=== PATIENT | male | born 1980 ===

== ENCOUNTER 2021-07-12 06:02 | Inpatient (IN) | payer SELFPAY ==
[~2021-07-12] VITALS: Ht 180.3 cm; Wt 141.2 kg
[2021-07-12 07:35] LABS: Basophils # (auto) 0.1 10 ^3/uL (0-0.2); Basophils % (auto) 0.6 % (0.0-2.0); Eosinophils # (auto) 0.6 10 ^3/uL (0-0.8); Eosinophils % (auto) 6.3 % (0.0-7.0); Hemoglobin 14.6 g/dL (13.5-17.5); Lymphocytes # (auto) 1.8 10 ^3/uL (0.4-5.4); Lymphocytes % (auto) 21.1 % (10.0-50.0); Mean Corpuscular Hemoglobin 28.7 pg (28.0-32.0); Mean Corpuscular Hgb Conc. 33.1 g/dL (32.0-36.0); Mean Corpuscular Volume 86.8 fL (80.0-100.0); Monocytes # (auto) 0.9 10 ^3/uL (0-1.3); Monocytes % (auto) 10.1 % (0.0-12.0); Neutrophils # (auto) 5.4 10 ^3/uL (1.6-8.6); Neutrophils % (auto) 61.9 % (37.0-80.0); Nucleated Red Blood Cells % 0.2 %; Red Blood Cells 5.07 10^6/uL (4.5-5.90); Red Cell Distribution Width 14.9 % (11.8-14.3); White Blood Cell 8.7 10^3/uL (4.4-10.8)
[2021-07-12 07:57] LABS: Albumin 3.1 g/dL (3.4-5.0); Calcium 9.1 mg/dL (8.5-10.1); Potassium 3.9 mmol/L (3.5-5.1)
[2021-07-12 08:02] LABS: BUN/Creatinine Ratio 14.1; Bilirubin, Total 0.5 mg/dL (0.2-1.0); Total Protein 6.9 g/dL (6.4-8.2)
[2021-07-12] MEDS ORDERED: AZITHROMYCIN 500MG/ 250ML 250 ML IV ONE (09:00)
[2021-07-12] MEDS ORDERED: cefTRIAXone 1GM/50ML D5W 50 ML IV ONE (09:00)
[2021-07-12] MEDS ORDERED: MORPHINE SULFATE 4 MG/ML SYR/VIAL IV PRN (09:30)
[2021-07-12] MEDS ORDERED: HYDROcodone-ACET 5/325MG TAB PO PRN (09:30)
[2021-07-12] MEDS ORDERED: ACETAMINOPHEN 325 MG TAB PO PRN (09:30)
[2021-07-12] MEDS ORDERED: ONDANSETRON HCL 4 MG/2 ML VIAL IV PRN (09:30)
[2021-07-12] MEDS ORDERED: DOCUSATE SOD 100 MG CAP PO PRN (09:30)
[2021-07-12] MEDS: FAMOTIDINE (10MG/ML) 2ML VL IV SCH (10:00)
[2021-07-12] MEDS: DexAMETHasone SOD PHOS 10MG/1ML VIAL INJ IV SCH (10:38)
[2021-07-12] MEDS: ENOXAPARIN SOD 40 MG/0.4 ML SYRINGE SC SCH (10:39)
[2021-07-12] MEDS: ASCORBIC ACID 500 MG TAB PO SCH ×2 (10:39→21:17)
[2021-07-12] MEDS: MULTIPLE VITAMIN TAB PO SCH (10:39)
[2021-07-12] MEDS: ZINC SULFATE 220mg CAP or TAB PO SCH (10:39)
[2021-07-12] MEDS ORDERED: MORPHINE SULFATE INJECTION 2 MG/ML SYRG IV PRN (10:45)
[2021-07-12] MEDS ORDERED: NITROGLYCERIN 0.4 MG SL TAB SL PRN (10:45)
[2021-07-12 13:00] VITALS: BP 138/98
[2021-07-12] MEDS ORDERED: FUROSEMIDE 40 MG/4 ML VIAL IV ONE (13:15)
[2021-07-12] MEDS ORDERED: CARVEDILOL 12.5 MG TAB PO ONE (13:30)
[2021-07-12] MEDS ORDERED: CARVEDILOL 3.125 MG TAB PO ONE (13:45)
[2021-07-12] MEDS: SODIUM CHLOR 0.9% PF (SALINE LOCK) 10ML VIAL/SYR IV SCH ×2 (15:29→21:17)
[2021-07-12 15:36] LABS: Urine Bacteria NONE SEEN /hpf (None Seen); Urine Blood Negative /uL (Negative); Urine Specific Gravity 1.018 (1.001-1.035); Urine WBC 1 /hpf (0 - 3)
[2021-07-12 17:00] VITALS: BP 141/96
[2021-07-12] MEDS: CARVEDILOL 3.125 MG TAB PO SCH (21:19)
[2021-07-12 22:00] VITALS: BP 111/71
[2021-07-12] MEDS ORDERED: CARVEDILOL 12.5 MG TAB PO SCH (22:00)
[2021-07-13 05:00] VITALS: BP 125/86
[2021-07-13] MEDS: SODIUM CHLOR 0.9% PF (SALINE LOCK) 10ML VIAL/SYR IV SCH ×3 (06:20→21:27)
[2021-07-13 06:41] LABS: Basophils # (auto) 0 10 ^3/uL (0-0.2); Basophils % (auto) 0.3 % (0.0-2.0); Eosinophils # (auto) 0 10 ^3/uL (0-0.8); Eosinophils % (auto) 0.4 % (0.0-7.0); Hematocrit 39.6 % (41.0-53.0); Hemoglobin 13.6 g/dL (13.5-17.5); Lymphocytes # (auto) 1.9 10 ^3/uL (0.4-5.4); Mean Corpuscular Hemoglobin 29.4 pg (28.0-32.0); Mean Corpuscular Hgb Conc. 34.4 g/dL (32.0-36.0); Mean Corpuscular Volume 85.5 fL (80.0-100.0); Monocytes # (auto) 0.9 10 ^3/uL (0-1.3); Monocytes % (auto) 7.4 % (0.0-12.0); Neutrophils # (auto) 9.6 10 ^3/uL (1.6-8.6); Neutrophils % (auto) 76.9 % (37.0-80.0); Red Blood Cells 4.64 10^6/uL (4.5-5.90); Red Cell Distribution Width 14.8 % (11.8-14.3); White Blood Cell 12.5 10^3/uL (4.4-10.8)
[2021-07-13 07:02] LABS: Potassium 3.5 mmol/L (3.5-5.1)
[2021-07-13 07:10] LABS: Albumin 2.9 g/dL (3.4-5.0); BUN/Creatinine Ratio 23.8; Calcium 8.6 mg/dL (8.5-10.1); Total Protein 6.5 g/dL (6.4-8.2)
[2021-07-13 07:12] LABS: Bilirubin, Total 0.6 mg/dL (0.2-1.0)
[2021-07-13 08:00] VITALS: BP 124/83
[2021-07-13] MEDS: cefTRIAXone 1GM/50ML D5W 50 ML IV SCH (09:01)
[2021-07-13] MEDS: DexAMETHasone SOD PHOS 10MG/1ML VIAL INJ IV SCH (09:02)
[2021-07-13] MEDS: FAMOTIDINE (10MG/ML) 2ML VL IV SCH (09:04)
[2021-07-13] MEDS: CARVEDILOL 3.125 MG TAB PO SCH ×2 (09:06→21:27)
[2021-07-13] MEDS: MULTIPLE VITAMIN TAB PO SCH (09:07)
[2021-07-13] MEDS: ASCORBIC ACID 500 MG TAB PO SCH (09:08)
[2021-07-13] MEDS: ZINC SULFATE 220mg CAP or TAB PO SCH (09:09)
[2021-07-13] MEDS: ENOXAPARIN SOD 40 MG/0.4 ML SYRINGE SC SCH (09:11)
[2021-07-13] MEDS: AZITHROMYCIN 500MG/ 250ML 250 ML IV SCH (09:36)
[2021-07-13] MEDS ORDERED: amLODIPine BESYLATE 5 MG TAB PO SCH (10:00)
[2021-07-13] MEDS ORDERED: FUROSEMIDE 40 MG/4 ML VIAL IV SCH (10:00)
[2021-07-13 12:00] VITALS: BP 106/64
[2021-07-13] MEDS ORDERED: POTASSIUM CHL 20 Meq TABLET PO ONE (14:30)
[2021-07-13] MEDS ORDERED: MORPHINE SULFATE INJECTION 2 MG/ML SYRG IV PRN (14:45)
[2021-07-13 16:00] VITALS: BP 129/83
[2021-07-13 16:35] LABS: Amphetamine Screen, Urine NEGATIVE (NEGATIVE); Barbiturate Scree,Urine NEGATIVE (NEGATIVE); Benzodiazephine Screen, Urine NEGATIVE (NEGATIVE); Cannabinoid Screen, Urine NEGATIVE (NEGATIVE); Cocaine Screen, Urine NEGATIVE (NEGATIVE); Opiate Scree,Urine NEGATIVE (NEGATIVE); Phencyclidine Screen, Urine NEGATIVE (NEGATIVE)
[2021-07-13] MEDS: FUROSEMIDE 40 MG/4 ML VIAL IV SCH (17:33)
[2021-07-13] MEDS: SACUBITRIL-VALSARTAN 24mg/26mg TAB PO SCH (21:28)
[2021-07-13 22:38] VITALS: BP 138/87
[2021-07-14 05:09] VITALS: BP 125/81
[2021-07-14] MEDS: SODIUM CHLOR 0.9% PF (SALINE LOCK) 10ML VIAL/SYR IV SCH ×2 (06:23→14:35)
[2021-07-14] MEDS: FUROSEMIDE 40 MG/4 ML VIAL IV SCH (06:24)
[2021-07-14 08:00] VITALS: BP 114/68
[2021-07-14] MEDS: AZITHROMYCIN 500MG/ 250ML 250 ML IV SCH (09:10)
[2021-07-14] MEDS: cefTRIAXone 1GM/50ML D5W 50 ML IV SCH (09:10)
[2021-07-14] MEDS: FAMOTIDINE (10MG/ML) 2ML VL IV SCH (09:10)
[2021-07-14] MEDS: ENOXAPARIN SOD 40 MG/0.4 ML SYRINGE SC SCH (09:11)
[2021-07-14] MEDS: MULTIPLE VITAMIN TAB PO SCH (09:11)
[2021-07-14] MEDS: ZINC SULFATE 220mg CAP or TAB PO SCH (09:11)
[2021-07-14] MEDS: CARVEDILOL 3.125 MG TAB PO SCH (09:12)
[2021-07-14] MEDS: SACUBITRIL-VALSARTAN 24mg/26mg TAB PO SCH (09:12)
[2021-07-14] MEDS ORDERED: DAPAGLIFLOZIN 5 MG TAB PO SCH (10:00)
[2021-07-14] MEDS ORDERED: POTASSIUM CHL 20 Meq TABLET PO SCH (10:00)
[2021-07-14] MEDS ORDERED: SACU1TAB PO (11:34)
[2021-07-14] MEDS ORDERED: CAR3125T PO (11:34)
[2021-07-14] MEDS ORDERED: FURO1TAB32 PO (11:35)
[2021-07-14 12:00] VITALS: BP 104/59
[2021-07-14 14:06] LABS: Cholesterol 103 mg/dL (< 200); HDL Cholesterol 34 mg/dL (40-59); Triglycerides 60 mg/dL (< 150)
[2021-07-14 16:00] VITALS: BP 101/51
[2021-07-14 16:36] VITALS: BP 101/51
[2021-07-18 19:26] LABS: LDL Cholesterol 70 mg/dL (< 100)
== END 2021-07-14 18:34 | disposition home or self-care (01) | DRG 193 ==
LOC: ER 06:02 → OVERFLOW 10:33 → WEST WING 14:00 → TELE-WESTW 07-13 17:13
PROVIDERS: ADMIT Nurse Practitioner Family; ATTEND Internal Medicine Pulmonary Disease
DX: J18.9 Pneumonia, unspecified organism (principal); I50.23 Acute on chronic systolic (congestive) heart failure; I42.9 Cardiomyopathy, unspecified; Z68.41 Body mass index [BMI] 40.0-44.9, adult; E66.01 Morbid (severe) obesity due to excess calories; I10 Essential (primary) hypertension; R53.81 Other malaise; Z20.822 Contact with and (suspected) exposure to COVID-19; I11.0 Hypertensive heart disease with heart failure; Z82.3 Family history of stroke; Z82.5 Family history of asthma and other chronic lower respiratory diseases
CPT/HCPCS: 36415; 71045; 71250; 80053; 80061; 80307; 81001; 83036; 83880; 84443; 84484; 85025; 87426; 93005; 93306; 96365; 96368; 96375; G0378; J0696; J1100; J3490